=== PATIENT | female | born 1995 ===

== ENCOUNTER 2018-03-20 08:53 | Emergency (ER) | payer MEDICAID ==
[2018-03-20 10:11] VITALS: BMI 28.1
[2018-03-20] MEDS ORDERED: Lactated Ringer's 1,000 ML IV SCH (10:15)
[2018-03-20 10:59] LABS: BASO % 0.2 % (0.0-2.0); EOS % 0.4 % (0.0-4.0); HEMOGLOBIN 12.6 g/dL (12.0-16.0); LYMPH # 1.8 K/uL (1.0-4.3); MEAN CELL VOLUME 101.3 fl (81.0-99.0); MEAN CORPUSCULAR HEMOGLOBIN 35.1 pg (27.0-31.0); MEAN CORPUSCULAR HGB CONC 34.6 g/dL (33.0-37.0); MEAN PLATELET VOLUME 9.1 fl (7.2-11.7); MONO # 0.6 K/uL (0.0-0.8); NEUT % 78.4 % (50.0-75.0); RBC 3.58 Mil/uL (3.80-5.20); WHITE BLOOD COUNT 11.4 K/uL (4.8-10.8)
[2018-03-20 11:10] LABS: BLOOD UREA NITROGEN 11 mg/dl (7-17); CALCIUM 8.5 mg/dL (8.4-10.2); GFR NON-AFRICAN AMERICAN > 60
[2018-03-20 11:17] LABS: ALBUMIN 3.5 g/dL (3.5-5.0); ALT/SGPT 19 U/L (9-52); AST/SGOT 42 U/L (14-36)
[2018-03-20 12:16] LABS: SQUAMOUS EPITHIAL 7 /hpf (0-5); URINE BACTERIA RARE (<OCC); URINE BILIRUBIN NEGATIVE (NEGATIVE); URINE BLOOD NEGATIVE (NEGATIVE); URINE CLARITY SLIGHTY-CLOUDY (Clear); URINE COLOR YELLOW (YELLOW); URINE GLUCOSE (UA) NEG (Normal); URINE LEUKOCYTE ESTERASE NEG Leu/uL (Negative); URINE PROTEIN NEGATIVE (NEGATIVE); URINE UROBILINOGEN 0.2-1.0 mg/dL (0.2-1.0)
[2018-03-20 16:50] VITALS: BP 109/61; PULSE 70
== END 2018-03-20 12:48 | disposition home or self-care (01) ==
LOC: H.EROB2 08:53 → H.L&D 10:14 → H.EROB2 12:48
DX: O47.03 False labor before 37 completed weeks of gestation, third trimester (principal); Z3A.28 28 weeks gestation of pregnancy; O21.0 Mild hyperemesis gravidarum; O34.63 Maternal care for abnormality of vagina, third trimester; N89.8 Other specified noninflammatory disorders of vagina
CPT/HCPCS: 80053; 81003; 85025; 99283; J7120

== ENCOUNTER 2018-06-03 10:14 | Emergency (ER) | payer MEDICAID ==
[2018-06-03 11:38] VITALS: BMI 30.8
[2018-06-03 15:41] VITALS: BP 116/66; PULSE 78; RESP 18; TEMP 97.8; O2SAT 100
== END 2018-06-03 11:04 | disposition home or self-care (01) ==
LOC: H.EROB2 10:14
DX: O26.93 Pregnancy related conditions, unspecified, third trimester (principal); R10.2 Pelvic and perineal pain; N89.8 Other specified noninflammatory disorders of vagina; Z3A.38 38 weeks gestation of pregnancy; O26.853 Spotting complicating pregnancy, third trimester

== ENCOUNTER 2018-06-03 22:20 | Inpatient (IN) | payer MEDICAID ==
[2018-06-03 11:38] VITALS: BMI 30.8
--- NOTE | 2018-06-04 00:54 | OBHP ---
Datetime: 06/04/2018 00:52 IP Adm Impression: Term, intrauterine ; No Active Labor; Intact Membranes IP Admit Plan: Observation/Evaluation Pelvic Type - PN: Adequate Extremities - PN: Normal Abdomen - PN: Normal Back - PN: Normal Breast - PN: Normal Lungs - PN: Normal Heart - PN: Normal Thyroid - PN: Normal Neurologic - PN: Normal HEENT - PN: Normal General - PN: Normal EGA AdmitDate IP: 38.6 Vital Signs Provider: Reviewed; Within Normal Limits IP Chief Complaint: Vaginal bleeding Dilatation, Provider: 1-2 Effacement, Provider: 90 Genitourinary Exam: Normal DTRs - PN: Normal Datetime: 06/03/2018 10:58 IP Chief Complaint Other: brown discharge Admit Comment, IP Provider: This is a 23 yo 38.5 wk present due to brown discharge since 8:00 1 08/04/17. Pt also state that she have been feeling pressure on abdomen for the past 3 week, but have no t change. pt last sexual interaction was 2 days ago. Pt denies any water gush, bloody discharge, abdominal pain. + movement. no other complain. PCP: Dr. Griffin Allergy None Meds: PMH none PFH none PSH none OBGYN: +chlamidia first trimester, resolved. Social: denies smoke drink or drug 11:01 Assessment and plan Pt seem comfortable lying in bed Nitrate test negative pelvic 2 25% -1, membrane intact Tocometer mild contraction noted Pt will be discharged home and will follow up with Primary care doctor . ER precaution given, Pt should come if feel contraction every 5min for >1 h, water gush or bleedin g or decrease movement to go to hospital. Case discussed with Dr. Mejia FHR - Baseline A Provider: 130 Comments, ACOG Physical Exam: Pt not in acute distress. Pt feel comfortable Physical exam WNL cervial 2, 25%, -1 membrane intact mild bloody discharge noted. Gestation - Est Wks by US: 38.5 NICHD Variability Prov Fetus A: Moderate 6-25bpm Station, Provider: -1 Datetime: 03/20/2018 09:20 Membranes, Provider: Intact Contraction Comments Provider: none Pool Provider: Negative NICHD Accel Fetus A IP Provider: [id number] FHR Category Provider Fetus A: Category I NICHD Decel Fetus A IP Provider: None
--- NOTE | 2018-06-04 01:13 | OBHP ---
Datetime: 06/04/2018 00:52 Admit Comment, IP Provider: 23-year-old at 38 weeks and 6 days gestational age returned to OB ED due to complaint of vaginal bleeding at home. Patient denies leakage of fluids. Patient reports fe eling mild contractions occasionally. Patient reports good movement. Past medical history denies Past surgical history denies Medications vitamins Obstetrical history Social history denies tobacco, drugs, alcohol Assessment: No evidence of active labor at this time, heart tracing category 1. Plan: Due to patient's complaint of vaginal bleeding, we'll continue observation at this time. Discussed plan with patient and all patient questions answered FHR - Baseline A Provider: 120s Contraction Comments Provider: q8-9min EGA AdmitDate IP: 38.6 NICHD Variability Prov Fetus A: Moderate 6-25bpm NICHD Accel Fetus A IP Provider: [id number] FHR Category Provider Fetus A: Category I NICHD Decel Fetus A IP Provider: None Station, Provider: -3
[2018-06-04] MEDS ORDERED: Lactated Ringer's 1,000 ML IV ONE (03:01)
[2018-06-04] MEDS ORDERED: Oxytocin 30 UNITS in Sodium Chloride 0.9% 500 ML IV ONE (03:01)
[2018-06-04 04:01] VITALS: O2SAT 100
[2018-06-04 04:28] LABS: BASO % 0.5 % (0.0-2.0); EOS % 0.1 % (0.0-4.0); HEMOGLOBIN 13.3 g/dL (12.0-16.0); LYMPH # 1.8 K/uL (1.0-4.3); MEAN CELL VOLUME 98.5 fl (81.0-99.0); MEAN CORPUSCULAR HEMOGLOBIN 34.2 pg (27.0-31.0); MEAN CORPUSCULAR HGB CONC 34.8 g/dL (33.0-37.0); MEAN PLATELET VOLUME 8.7 fl (7.2-11.7); MONO # 0.6 K/uL (0.0-0.8); MONO % 5.6 % (0.0-10.0); NEUT # 7.7 K/uL (1.8-7.0); NEUT % 75.8 % (50.0-75.0); RBC 3.88 Mil/uL (3.80-5.20); RED CELL DISTRIBUTION WIDTH 12.5 % (11.5-14.5); WHITE BLOOD COUNT 10.2 K/uL (4.8-10.8)
[2018-06-04] MEDS: Lactated Ringer's 1,000 ML IV SCH ×2 (05:24→12:00)
[2018-06-04] MEDS ORDERED: Fentanyl/Bupivacaine HCl 250 ML EPI ONE (05:37)
--- NOTE | 2018-06-04 09:49 | OBADHP ---
Datetime: 06/04/2018 09:48 FHR - Baseline A Provider: 130s-140s Vital Signs Provider: Reviewed; Within Normal Limits NICHD Variability Prov Fetus A: Moderate 6-25bpm NICHD Accel Fetus A IP Provider: [id number] FHR Category Provider Fetus A: Category I NICHD Decel Fetus A IP Provider: None Dilatation, Provider: 5 Effacement, Provider: 100 Station, Provider: 0 Datetime: 06/04/2018 00:52 Admit Comment, IP Provider: 23-year-old at 38 weeks and 6 days gestational age returned to OB ED due to complaint of vaginal bleeding at home. Patient denies leakage of fluids. Patient reports fe eling mild contractions occasionally. Patient reports good movement. Past medical history denies Past surgical history denies Medications vitamins Obstetrical history Social history denies tobacco, drugs, alcohol Assessment: No evidence of active labor at this time, heart tracing category 1. Plan: Due to patient's complaint of vaginal bleeding, we'll continue observation at this time. Discussed plan with patient and all patient questions answered Pelvic Type - PN: Adequate Extremities - PN: Normal Abdomen - PN: Normal Back - PN: Normal Breast - PN: Normal Lungs - PN: Normal Heart - PN: Normal Thyroid - PN: Normal Neurologic - PN: Normal HEENT - PN: Normal General - PN: Normal Contraction Comments Provider: q8-9min IP Chief Complaint: Vaginal bleeding Genitourinary Exam: Normal DTRs - PN: Normal EGA AdmitDate IP: 38.6 IP Adm Impression: Term, intrauterine ; No Active Labor; Intact Membranes IP Admit Plan: Observation/Evaluation Datetime: 06/03/2018 10:58 IP Chief Complaint Other: brown discharge Comments, ACOG Physical Exam: Pt not in acute distress. Pt feel comfortable Physical exam WNL cervial 2, 25%, -1 membrane intact mild bloody discharge noted. Gestation - Est Wks by US: 38.5 Datetime: 03/20/2018 09:20 Membranes, Provider: Intact Pool Provider: Negative
--- NOTE | 2018-06-04 09:52 | OBPN ---
Datetime: 06/04/2018 09:48 IP Procedures: Sterile Vag Exam IP Progress Plan: Continue present management FHR - Baseline A Provider: 130s-140s IP Progress Note Comment: Patient comfortable status post epidural. Plan to continue current management. heart tracing category 1. Discussed plan with patient all patient questions answered. Vital Signs Provider: Reviewed; Within Normal Limits NICHD Accel Fetus A IP Provider: [id number] FHR Category Provider Fetus A: Category I NICHD Variability Prov Fetus A: Moderate 6-25bpm Dilatation, Provider: 5 Effacement, Provider: 100 Station, Provider: 0 NICHD Decel Fetus A IP Provider: None Datetime: 06/04/2018 00:52 Contraction Comments Provider: q8-9min Datetime: 06/03/2018 10:58 Gestation - Est Wks by US: 38.5 Datetime: 03/20/2018 09:20 Pool Provider: Negative Membranes, Provider: Intact
[2018-06-04] MEDS ORDERED: Lidocaine 1% Inj (20ml) ONE (12:33)
[2018-06-04] MEDS ORDERED: Oxycodone/Acetaminophen 5/325 mg Tab PO PRN (16:08)
--- NOTE | 2018-06-04 16:13 | OBDS ---
MATERNAL INFORMATION Delivery Anesthesia: Epidural Medications in Delivery: pitocin Provider Comments: Delivered live baby girl at 3:56 PM intact. The baby was bulb suctioned on the pe rineum and transferred to the maternal chest. The cord was clamped and cut 3 vessels noted, cord bloo d was obtained and sent to lab. Placenta was delivered at 4:00 PM intact, the estimated middle blood loss was 100 mL. There were no vaginal lacerations, the mother tolerated the procedure well. The baby went to the well-baby nursery with Apgars of 9 and 9 weighing 3105 g LABOR SUMMARY EDC: 06/12/2018 00:00 No. Babies in Womb: 1 LABOR INFORMATION Group B Beta Strep: Negative MEMBRANES Membranes Rupture Method: Artificial Rupture of Membranes: 06/04/2018 13:25 Amniotic Fluid Color: Clear Amniotic Fluid Amount: Small Amniotic Fluid Odor: Normal VAGINAL DELIVERY Laceration Extension: N/A Laceration Type: None Laceration Repair Note: No tear BABY A INFORMATION Born in Route : No : N/A PRESENTATION/POSITION BABY A Presentation: Cephalic INFANT INFORMATION BABY A Gestational Age at Delivery: 38.0
[2018-06-04] MEDS: OXYTOCIN/0.9 % NS 20 UNIT/1,000 ML BAG IV SCH (16:29)
[2018-06-05 06:30] LABS: BASO % 0.3 % (0.0-2.0); EOS # 0.1 K/uL (0.0-0.7); EOS % 0.6 % (0.0-4.0); HEMOGLOBIN 10.7 g/dL (12.0-16.0); LYMPH # 2.1 K/uL (1.0-4.3); LYMPH % 18.6 % (20.0-40.0); MEAN CELL VOLUME 99.7 fl (81.0-99.0); MEAN CORPUSCULAR HEMOGLOBIN 34.5 pg (27.0-31.0); MEAN CORPUSCULAR HGB CONC 34.6 g/dL (33.0-37.0); MEAN PLATELET VOLUME 9.1 fl (7.2-11.7); MONO # 0.8 K/uL (0.0-0.8); MONO % 7.1 % (0.0-10.0); NEUT # 8.3 K/uL (1.8-7.0); NEUT % 73.4 % (50.0-75.0); NRBC % 0.1 % (0.0-0.0); RBC 3.12 Mil/uL (3.80-5.20); RED CELL DISTRIBUTION WIDTH 12.9 % (11.5-14.5); WHITE BLOOD COUNT 11.3 K/uL (4.8-10.8)
[2018-06-05] MEDS: OXYTOCIN/0.9 % NS 20 UNIT/1,000 ML BAG IV SCH (07:16)
--- NOTE | 2018-06-05 11:29 | OBPPN ---
Datetime: 06/05/2018 10:14 PP Pain Prov: Within normal limits PP Nausea Prov: Denies PP Flatus Prov: No PP BM Prov: No PP Breasts Prov: Not Done PP Heart Prov: Normal PP Lungs Prov: Normal PP Abdomen/Uterus Prov: Normal PP Lochia Prov: Normal PP Vulva/Perineum Prov: Not Done PP CVA Tenderness Prov: Normal PP Extremities Prov: Normal PP Impression Prov: Normal progression PP Plan Prov: Continue present management PP Progress Note Prov: S: Patient seen this morning at bedside, she is S/P on 06/04/18@ 15: 56, on her PPD 1. Pt has no complaints today. Reports minimal abdominal pain controlled with ibuprofe n, she is tolerating regular diet w/o N/V, ambulating to bathroom without any difficulties, lochia is equal to menses in volume, Breast feeding w/o difficulty and using formula as complementary, patient state no bm/ or flatus yet. O: VS WNL PE GEN: NAD HEENT: EOMI, Mucous membrane moist. RESP: CTA b/l CV: RRR, no murmurs heard ABD: soft, mild tender, uterus firm @ umbilicus LE: No edema, Scottie's negative. A/P 23 y/o s/p on 06/04/18, PPD1 with normal post- progression. -Encourage ambulation -Encourage -PNV 1 tab PO daily -Ibuprofen 600mg 1 tab Q6h prn for mild-mod pain -D/C on 06/06/18 Mejia Santoyo, PGY 1 (Annotations: Data stored by CPN on behalf of user) IP PP Procedures: None Vital Signs Provider PP: Reviewed; Within Normal Limits
--- NOTE | 2018-06-06 10:16 | OBPPN ---
Datetime: 06/06/2018 06:03 PP Pain Prov: Within normal limits PP Nausea Prov: Denies PP Flatus Prov: Yes PP BM Prov: Yes PP Breasts Prov: Not Done PP Heart Prov: Normal PP Lungs Prov: Normal PP Abdomen/Uterus Prov: Normal PP Lochia Prov: Normal PP Vulva/Perineum Prov: Not Done PP Extremities Prov: Normal PP Comments Phys Exam Prov: See progress Note PP Impression Prov: Normal progression PP Plan Prov: Discharge PP Progress Note Prov: S: 23 y/o S/P on 06/04/18@ 15:56, seen and examined this morning at bedside on her PPD2. Pt had an uneventful overnight. She reports only very mild abdominal pain contro lled with pain medication, is tolerating regular diet w/o N/V, ambulating to bathroom without any dif ficulties, voiding well with no blood in urine, lochia is less than menses in volume, + flatus and stevenson d BM yesterday. Patient is breast feeding w/o difficulty and using formula to complement. Patient den ies fevers, chills, CP, SOB, dizziness, or calf pain. O: VS WNL GEN: NAD HEENT: NCAT, EOMI, Mucous membrane moist. RESP: CTA b/l CV: RRR, S1 S2 present normal, no murmurs heard ABD: soft, no distension, uterus firm @ umbilical level LE: No edema, Scottie's negative. A/P 23 y/o s/p on 06/04/18, with normal post- progression and doing well on her PPD2. -Encourage ambulation -Encourage -PNV 1 tab PO daily -Ibuprofen 600mg 1 tab Q6h prn for mild-mod pain -D/C planning today. Max Dominguez MD PGY1 Patient seen and examined by me this am. Agree with above note. Patient for discharge home today a nd rtc in 6 wks. Continue Motrin for pain and encouraged. Baby for follow up with Peds this week. --Dr. Vciente Vital Signs Provider PP: Reviewed; Within Normal Limits
--- NOTE | 2018-06-06 10:16 | OBDCSUM ---
Datetime: 06/06/2018 08:07 Discharged to, Provider: Home Follow up at, Provider: MAX Disch Instr Diet: Regular Discharge Diagnosis, Provider: Term Delivered Follow up in weeks, Provider: 4-6 weeks. Discharge Comment, Provider: EGA: 38.6wk Diagnosis: 23 y/o s/p on 06/04/18 @ 15:56. She delivered a baby girl, Wt 3105, 9/9 Summary: Patient is PPD2 with normal progression. No complications during post- period. Loch ia less than menses. Pt was able to pass gas and had BM, She is tolerating regular diet, Fundus firm below umbilicus, able to ambulate w/o any difficulties, voiding well, denies fever, chills, GARCIA, SOB, N/V, calf pain. CBC post-: 10.7/3.11 Discharge Instructions: Continue and increase PNV 1 tab PO daily Ibuprofen 600mg 1 tab PO Q8h prn for mild-mod pain Instructions given to patient: If excessive bleeding, return of pain or increasing pain and/or fev er without relief from medication, go to ED PT was urged if feeling sad, mood swing, depression, neglect of baby, suicidal thoughts, homicidal thought should go to ED or call 911 for help Pt should go to her Primary care doctor if she has difficulty with F/U for visit in 1-2 days and post- visit in 4 to 6 weeks --Agree with above note -Dr. Vicente
[2018-06-06 19:04] VITALS: BP 120/66; PULSE 77; RESP 18; TEMP 97.9
== END 2018-06-06 13:45 | disposition home or self-care (01) | DRG 373 ==
LOC: H.EROB2 22:20 → H.L&D 06-04 03:01 → H.OB/GYN 06-04 19:25
PROVIDERS: ADMIT Obstetrics & Gynecology; ATTEND Obstetrics & Gynecology
PROC: 10E0XZZ Delivery of Products of Conception, External Approach (ICD-10-PCS; principal; 2018-06-04)
PROC: 10907ZC Drainage of Amniotic Fluid, Therapeutic from Products of Conception, Via Natural or Artificial Opening (ICD-10-PCS; 2018-06-04)
DX: O80 Encounter for full-term uncomplicated delivery (principal); Z37.0 Single live birth; Z3A.38 38 weeks gestation of pregnancy